=== PATIENT | female | born 1940 | race Asian ===

== ENCOUNTER 2017-09-09 09:35 | Outpatient (CLI) | payer OTHER ==
[~2017-09-09 09:35] MED LIST: ASA LO-DOSE81 MG PO; CIPRO500 MG PO; GLIP5TAB65 PO; GLYB5TAB65 PO; INSU100P; INSU100P SC; LANTUS100 MG/ML SC; LOTENSIN HCT1 TAB PO; MOBIC7.5 M1 PO; PLAVIX75 MG PO; ULTRAM50 MG PO
[2017-09-09 09:53] LABS: PLATELET COUNT 403 K/uL (152-353)
[2017-09-09 10:46] LABS: POTASSIUM 3.1 mmol/L (3.6-5.2)
== END 2017-09-09 23:46 | disposition home or self-care (01) ==
LOC: LABW 09:35
PROVIDERS: Internal Medicine
DX: E11.9 Type 2 diabetes mellitus without complications (principal); R82.99 Other abnormal findings in urine
CPT/HCPCS: 36415; 80053; 80061; 81000; 82043; 82570; 83036; 84443; 85027; 87077; 87086; 87088; 87186

== ENCOUNTER 2017-10-13 15:02 | Outpatient (CLI) | payer OTHER ==
[2017-10-13 15:31] LABS: POTASSIUM 3.5 mmol/L (3.6-5.2)
== END 2017-10-13 21:45 | disposition home or self-care (01) ==
LOC: LABW 15:02
PROVIDERS: Internal Medicine
DX: E87.6 Hypokalemia (principal); N39.0 Urinary tract infection, site not specified
CPT/HCPCS: 36415; 80048; 83735

== ENCOUNTER 2017-10-14 11:36 | Outpatient (CLI) | payer OTHER | END 2017-10-14 22:05 | disposition home or self-care (01) | LOC: LAB 11:36 | DX: E87.6 Hypokalemia (principal); N39.0 Urinary tract infection, site not specified | CPT/HCPCS: 81000 ==

== ENCOUNTER 2018-05-29 12:03 | Outpatient (CLI) | payer OTHER ==
[2018-05-29 12:42] LABS: POTASSIUM 3.4 mmol/L (3.6-5.2)
[2018-05-29 12:44] LABS: PLATELET COUNT 381 K/uL (152-353)
== END 2018-05-29 20:09 | disposition home or self-care (01) ==
LOC: LABW 12:03
PROVIDERS: Internal Medicine
DX: N18.3 Chronic kidney disease, stage 3 (moderate) (principal); R82.998 Other abnormal findings in urine
CPT/HCPCS: 36415; 80053; 81000; 82043; 82306; 82570; 83735; 83970; 84100; 84155; 85027; 87077; 87086; 87088; 87186

== ENCOUNTER 2018-05-31 07:36 | Emergency (ER) | payer OTHER ==
[~2018-05-31] VITALS: Ht 165.1 cm; Wt 61.2 kg
[2018-05-31 07:45] VITALS: TEMP 98.2
[2018-05-31] MEDS ORDERED: DONEPEZIL HYDRO10 M1 PO (07:52)
[2018-05-31] MEDS ORDERED: LOTENSIN HCT1 TA2 PO (07:52)
[2018-05-31] MEDS ORDERED: IRON325 MG PO (07:53)
[2018-05-31] MEDS ORDERED: MEMANTINE HCL10 MG PO (07:53)
[2018-05-31] MEDS ORDERED: VITAMIN D50000 UNIT PO (07:54)
[2018-05-31 08:37] LABS: PLATELET COUNT 325 K/uL (152-353)
[2018-05-31 08:49] LABS: POTASSIUM 3.1 mmol/L (3.6-5.2)
[2018-05-31 10:20] VITALS: BP 152/78
== END 2018-05-31 10:20 | disposition home or self-care (01) ==
LOC: ED 07:36
PROVIDERS: Family Medicine
DX: N39.0 Urinary tract infection, site not specified (principal); E87.6 Hypokalemia; R10.30 Lower abdominal pain, unspecified
CPT/HCPCS: 36415; 80053; 81000; 85027; 96372; 99283; J0696

== ENCOUNTER 2018-07-23 10:24 | Outpatient (CLI) | payer OTHER ==
[~2018-07-23 10:24] MED LIST changes: +DONEPEZIL HYDRO10 M1 PO; +IRON325 MG PO; +LOTENSIN HCT1 TA2 PO; +MEMANTINE HCL10 MG PO; +VITAMIN D50000 UNIT PO
[2018-07-23 10:54] LABS: PLATELET COUNT 338 K/uL (152-353)
[2018-07-23 11:18] LABS: POTASSIUM 3.5 mmol/L (3.6-5.2)
== END 2018-07-23 19:18 | disposition home or self-care (01) ==
LOC: LABW 10:24
PROVIDERS: Internal Medicine
DX: E11.9 Type 2 diabetes mellitus without complications (principal)
CPT/HCPCS: 36415; 80053; 80061; 81000; 82043; 82570; 83036; 84439; 84443; 85027

== ENCOUNTER 2018-11-10 10:42 | Outpatient (CLI) | payer OTHER ==
[2018-11-10 11:19] LABS: POTASSIUM 3.5 mmol/L (3.6-5.2)
[2018-11-10 12:28] LABS: PLATELET COUNT 423 K/uL (152-353)
== END 2018-11-10 23:13 | disposition home or self-care (01) ==
LOC: LABW 10:42
PROVIDERS: Internal Medicine
DX: I12.9 Hypertensive chronic kidney disease with stage 1 through stage 4 chronic kidney disease, or unspecified chronic kidney disease (principal)
CPT/HCPCS: 36415; 80053; 83735; 84100; 85027

== ENCOUNTER 2018-12-17 08:56 | Outpatient (CLI) | payer OTHER ==
[2018-12-17 13:51] LABS: PLATELET COUNT 399 K/uL (152-353)
[2018-12-17 13:57] LABS: POTASSIUM 3.5 mmol/L (3.6-5.2)
== END 2018-12-17 23:27 | disposition home or self-care (01) ==
LOC: LAB 08:56
PROVIDERS: Internal Medicine
DX: N18.3 Chronic kidney disease, stage 3 (moderate) (principal); D64.89 Other specified anemias; R82.998 Other abnormal findings in urine
CPT/HCPCS: 80053; 81000; 85027; 87088

== ENCOUNTER 2019-02-11 11:53 | Outpatient (CLI) | payer OTHER | END 2019-02-11 19:31 | disposition home or self-care (01) | LOC: LAB 11:53 | DX: N39.0 Urinary tract infection, site not specified (principal) | CPT/HCPCS: 81000; 87077; 87086; 87088; 87186 ==

== ENCOUNTER 2019-03-09 13:04 | Outpatient (CLI) | payer OTHER | END 2019-03-09 19:46 | disposition home or self-care (01) | LOC: LAB 13:04 | DX: N18.3 Chronic kidney disease, stage 3 (moderate) (principal); Z79.899 Other long term (current) drug therapy | CPT/HCPCS: 81000; 87088 ==

== ENCOUNTER 2019-04-03 12:04 | Outpatient (CLI) | payer OTHER ==
[~2019-04-03 12:04] MED LIST changes: -LANTUS100 MG/ML SC; +LANTUS100 UNIT/M SC
[2019-04-03] MEDS ORDERED: QUETIAPINE50 MG PO (16:45)
[2019-04-03] MEDS ORDERED: QUET100T2 PO (16:46)
[2019-04-03] MEDS ORDERED: METO25TA2 PO (16:47)
[2019-04-03] MEDS ORDERED: COATED ASPIRIN325 MG PO (16:49)
== END 2019-04-03 12:15 | disposition short-term general hospital (02) ==
LOC: AMB 12:04
DX: R11.2 Nausea with vomiting, unspecified (principal); R53.1 Weakness
CPT/HCPCS: A0425; A0427

== ENCOUNTER 2019-04-03 12:18 | Emergency (ER) | payer OTHER ==
[~2019-04-03] VITALS: Ht 165.1 cm; Wt 61.2 kg
[2019-04-03] VITALS (9 sets, daily range): BP systolic 119–201; BP diastolic 45–95; TEMP 98.7
[2019-04-03 13:06] LABS: PLATELET COUNT 446 K/uL (152-353)
[2019-04-03 13:09] LABS: POTASSIUM 3.4 mmol/L (3.6-5.2)
[2019-04-03] MEDS ORDERED: QUETIAPINE50 MG PO (16:45)
[2019-04-03] MEDS ORDERED: QUET100T2 PO (16:46)
[2019-04-03] MEDS ORDERED: METO25TA2 PO (16:47)
[2019-04-03] MEDS ORDERED: COATED ASPIRIN325 MG PO (16:49)
== END 2019-04-03 20:50 | disposition still patient (30) ==
LOC: ED 12:18 → MED/SURG 17:43 → ED 17:43
PROVIDERS: Emergency Medicine
DX: K52.89 Other specified noninfective gastroenteritis and colitis (principal); E86.0 Dehydration; K92.2 Gastrointestinal hemorrhage, unspecified
CPT/HCPCS: 80053; 82272; 85027; 96360; 96365; 96374; 96375; 99285; J2405; Q9963

== ENCOUNTER 2019-04-03 20:54 | Outpatient (CLI) | payer OTHER ==
[~2019-04-03 20:54] MED LIST changes: +COATED ASPIRIN325 MG PO; +METO25TA2 PO; +QUET100T2 PO; +QUETIAPINE50 MG PO
== END 2019-04-03 22:07 | disposition short-term general hospital (02) ==
LOC: AMB 20:54
DX: K92.2 Gastrointestinal hemorrhage, unspecified (principal)
CPT/HCPCS: A0425; A0427